=== PATIENT | male | born 1990 | race Caucasian/White ===

== ENCOUNTER 2020-07-20 21:24 | Emergency (ER) | payer BC ==
[~2020-07-20] VITALS: Ht 180.3 cm; Wt 140.0 kg
[2020-07-20 21:30] VITALS: BP 165/117
== END 2020-07-20 22:10 | disposition home or self-care (01) ==
LOC: ER 21:25
DX: S09.8XXA Other specified injuries of head, initial encounter (principal); W18.39XA Other fall on same level, initial encounter; Y93.89 Activity, other specified; Y92.89 Other specified places as the place of occurrence of the external cause; Y99.8 Other external cause status
CPT/HCPCS: 99281